=== PATIENT | male | born 1985 | race Caucasian/White ===

== ENCOUNTER 2017-06-19 15:18 | Emergency (ER) | payer OTHER ==
[~2017-06-19] VITALS: Ht 165.1 cm; Wt 102.1 kg
[2017-06-19] MEDS ORDERED: BUPRENORPHIN-N1 EACH SL (16:43)
== END 2017-06-19 16:48 | disposition home or self-care (01) ==
LOC: ED 15:18
DX: S61.251A Open bite of left index finger without damage to nail, initial encounter (principal); W54.0XXA Bitten by dog, initial encounter; Y93.89 Activity, other specified